=== PATIENT | female | born 1940 | race Caucasian/White ===

== ENCOUNTER 2017-04-17 16:42 | Emergency (ER) | payer MEDICARE ==
[2017-04-17] MEDS ORDERED: oxyCODONE/Acetamin 5/325 MG* TAB PO ONE ×2 (17:31→20:56)
--- NOTE | 2017-04-17 18:22 | RAD ---
INDICATION: Facial trauma. COMPARISON: Comparison is made with a prior CT of the facial bones from November 05, 2002. TECHNIQUE: Contiguous axial sections of the axial images of the facial bones were obtained and reconstructed in the coronal and sagittal planes. FINDINGS: There is soft tissue swelling and a hematoma anterior to the left maxillary region. The hematoma measures approximately 3.2 x 1.2 cm in size. There is a comminuted depressed fracture of the anterior wall of the left maxillary sinus and a comminuted minimally displaced fracture of the posterior wall of the left maxillary sinus. There is also a slightly depressed fracture of the left orbital floor of approximately 2 mm. There is no evidence for herniation of fat or muscle entrapment. There is also a slightly impacted fracture of the lateral wall of the left orbit. There is widening of the left zygomatical frontal suture. The zygomatic arch appears intact. The mandible appears intact. The nasal bones appear intact. The nose is deviated toward the right side. There is moderate to severe deviation of the nasal septum toward the left side. The pterygoid plates appear intact. There is an air-fluid level within the left maxillary sinus. The right maxillary sinus is clear. There is mucosal thickening within the ethmoid air cells and a tiny air-fluid level within the left frontal sinus. The mastoid air cells appear clear. IMPRESSION: 1. COMMINUTED DISPLACED FRACTURES OF THE ANTERIOR AND POSTERIOR BURDEN OF THE LEFT MAXILLARY SINUS. 2. SLIGHTLY DEPRESSED FRACTURE OF THE LEFT ORBITAL FLOOR. 3. SLIGHTLY IMPACTED FRACTURE OF THE LATERAL WALL OF THE LEFT ORBIT. 4. WIDENING OF THE LEFT ZYGOMATICOFRONTAL SUTURE.
--- NOTE | 2017-04-17 18:24 | RAD ---
INDICATION: Head injury. COMPARISON: There are no prior studies available for comparison. TECHNIQUE: Contiguous axial sections of the brain were obtained from the skull base to the vertex without contrast. FINDINGS: The ventricles, cisterns and sulci are enlarged consistent with diffuse atrophy. No significant focal abnormality or mass effect is seen. There is no evidence for hemorrhage. There is an air-fluid level within the left maxillary sinus and fractures of the anterior and posterior durant of the sinus. IMPRESSION: 1. NO EVIDENCE FOR ACUTE INTRACRANIAL ABNORMALITY. 2. MULTIPLE LEFT FACIAL BONE FRACTURES SEE THE CT OF THE FACIAL BONES REPORT FOR FURTHER INFORMATION.
--- NOTE | 2017-04-17 18:25 | RAD ---
INDICATION: Trauma. COMPARISON: There are no prior studies available for comparison. TECHNIQUE: Contiguous axial sections were obtained from the skull base through the T2 vertebra. Images were reconstructed in the sagittal and coronal planes. FINDINGS: The vertebra are in normal alignment. No prevertebral soft tissue swelling or fracture is seen. At the C2-C3 level there is mild posterior uncinate process spurring and hypertrophic change within the left facet joint. No spinal canal narrowing is present. There is mild neural foraminal narrowing on the left side. At the C3-C4 level there is mild posterior uncinate process spurring and hypertrophic changes within the facet joints. No spinal canal narrowing is present. There is mild to moderate bilateral neural foraminal narrowing. At the C4-C5 level there is posterior uncinate process spurring. No significant spinal canal narrowing is present. There is mild to moderate bilateral neural foraminal narrowing. At the C5-C6 level there is mild posterior uncinate process spurring. No significant spinal canal narrowing is present. There is mild bilateral neural foraminal narrowing. At the C6-C7 level there is minimal posterior uncinate process spurring. No significant spinal canal narrowing is seen. Neural foramen appear patent on both sides. IMPRESSION: 1. NO EVIDENCE FOR FRACTURE OR SUBLUXATION. 2. MODERATE CERVICAL SPONDYLOSIS.
[2017-04-17] MEDS ORDERED: Ondansetron ODT TAB* 4 MG PO ONE ×2 (19:18→20:56)
[2017-04-17] MEDS ORDERED: Amoxicillin/Clavulanate TAB* 875 MG PO ONE ×2 (19:20→20:56)
[2017-04-17 22:55] VITALS: BP 145/73
--- NOTE | 2017-04-18 21:02 | ED ---
Grabiel Carter Gabriel, scribed for Russ Ureña MD on 04/17/17 at 1752 . Adult Trauma - HPI Summary HPI Summary: This patient is a 77 year old F BIBA to [facility] s/p mechanical fall that occurred [employer]. Patient states she slipped on ice causing her to fall down three stairs. The patient rates the pain 5/10 in severity. Patient reports the feeling of jaw misalignment, pain on the left side of her face, abrasion on left knee, and slight nausea. Patient denies vomiting, visual changes, and LOC. Hx one prior fall when she slipped and broke her orbital socket. - History of Current Complaint Chief Complaint: EDGeneral Stated Complaint: FALL Time Seen by Provider: 04/17/17 16:51 Hx Obtained From: Patient Mechanism of Injury: Fall Loss of Consciousness: no loss of consciousness Onset/Duration: Still Present Onset of Pain: Immediate Onset Severity: Moderate Current Severity: Moderate Pain Intensity: 5 Pain Scale Used: 0-10 Numeric Location: Head Associated Signs & Symptoms: Positive: Negative - LOC, vomiting, visual changes , Other: - the feeling of jaw misalignment, pain on the left side of her face, abrasion on left knee, and slight nausea - Allergy/Home Medications Allergies/Adverse Reactions: Allergies Allergy/AdvReac Type Severity Reaction Status Date / Time No Known Allergies Allergy Verified 04/17/17 16:46 PMH/Surg Hx/FS Hx/Imm Hx Endocrine/Hematology History: Reports: Hx Thyroid Disease - hypothyroid History: Denies: Hx Benign Prostatic Hyperplasia Musculoskeletal History: Denies: Hx Rheumatoid Arthritis, Hx Osteoporosis Infectious Disease History: No Infectious Disease History: Denies: Traveled Outside the [place] in Last 30 Days - Family History Known Family History: Negative: Renal Disease, Respiratory Disease, Seizure Disorder - Social History Alcohol Use: Rare Substance Use Type: Reports: None Smoking Status (MU): Never Smoked Tobacco Review of Systems All Other Systems Reviewed And Are Negative: Yes Physical Exam - Summary Physical Exam Summary: Appearance: The patient is well-nourished in no acute distress and in no acute pain. Skin: The skin is warm and dry and skin color reflects adequate perfusion. HEENT: The pupils are equal and reactive. The conjunctivae are clear and without drainage. Nares are patent and without drainage. Mouth reveals moist mucous membranes and the throat is without erythema and exudate. The external ears are intact. The ear canals are patent and without drainage. The tympanic membranes are intact. Swelling over the left zygomatic arch jaw moves with no click or pop Neck: the neck is supple with full range of motion and non-tender. There are no carotid bruits. There is no neck vein distension. Respiratory: Chest is non-tender. Lungs are clear to auscultation and breath sounds are symmetrical and equal. Cardiovascular: Heart is regular rate and rhythm. There is no murmur or rub auscultated. There is no peripheral edema and pulses are symmetrical and equal. Abdomen: The abdomen is soft and non-tender. There are normal bowel sounds heard in all four quadrants and there is no organomegaly palpated. Musculoskeletal: There is no back tenderness noted. Extremities are non-tender with full range of motion. There is good capillary refill. There is no peripheral edema or calf tenderness elicited. Neurological: Patient is alert and oriented to person, place and time. The patient has symmetrical motor strength in all four extremities. Cranial nerves are grossly intact. Deep tendon reflexes are symmetrical and equal in all four extremities. Psychiatric: The patient has an appropriate affect and does not exhibit any anxiety or depression. Triage Information Reviewed: Yes Vital Signs On Initial Exam: Initial Vitals Temp Pulse Resp BP Pulse Ox 99.0 F 65 16 170/100 100 04/17/17 16:47 04/17/17 16:47 04/17/17 16:47 04/17/17 16:47 04/17/17 16:47 Vital Signs Reviewed: Yes Diagnostics - Vital Signs Vital Signs Temp Pulse Resp BP Pulse Ox 04/17/17 17:36 20 04/17/17 16:47 99.0 F 65 16 170/100 100 - Laboratory Lab Statement: Any lab studies that have been ordered have been reviewed, and results considered in the medical decision making process. - CT CT Cspine CT Interpretation Completed By: Radiologist - 1. NO EVIDENCE FOR FRACTURE OR SUBLUXATION. 2. MODERATE CERVICAL SPONDYLOSIS. ED physician has reviewed this radiology report. CT Brain CT Interpretation Completed By: Radiologist - 1. NO EVIDENCE FOR ACUTE INTRACRANIAL ABNORMALITY. 2. MULTIPLE LEFT FACIAL BONE FRACTURES SEE THE CT OF THE FACIAL BONES REPORT FOR FURTHER INFORMATION. ED physician has reviewed this radiology report. CT maxillofacial CT Interpretation Completed By: Radiologist - 1. COMMINUTED DISPLACED FRACTURES OF THE ANTERIOR AND POSTERIOR BURDEN OF THE LEFT MAXILLARY SINUS. 2. SLIGHTLY DEPRESSED FRACTURE OF THE LEFT ORBITAL FLOOR. 3. SLIGHTLY IMPACTED FRACTURE OF THE LATERAL WALL OF THE LEFT ORBIT. 4. WIDENING OF THE LEFT ZYGOMATICOFRONTAL SUTURE. ED physician has reviewed this radiology report. Adult Trauma Course/Dx - Course Course Of Treatment: Ms. Wright suffered a mechanical fall on the ice and hit the left side of her face on the pavement. She did not lose consciousness but was mildly nauseated and C/O a diffuse LING. She had left upper cheek swelling and bruising. Her jaw moved well with no click or pop. CT revealed multiple zygomatic and orbital fractures. She had no orbit entrapment. I treated her symptomatically and encouraged close F/U with Dr. Zuñiga who is on for facial trauma. He will be able to point her in the right direction if she needs any surgery. - Diagnoses Provider Diagnoses: Facial fracture, Head injury Discharge - Discharge Plan Condition: Stable Disposition: HOME Prescriptions: Amoxicillin/Clavulanate TAB* [Augmentin TAB 875*] 875 mg PO BID #20 tab Ondansetron ODT TAB* [Zofran Odt TAB*] 4 mg PO Q6H PRN #20 tab.odt PRN Reason: Nausea/Vomiting oxyCODONE/Acetamin 5/325 MG* [Percocet 5/325 TAB*] 1 tab PO Q6H PRN #20 tab MDD 4 PRN Reason: Pain Patient Education Materials: Oxycodone/Acetaminophen (By mouth), Amoxicillin/ Clavulanate Potassium (By mouth), Ondansetron (By mouth), Facial Fracture (ED), Head Injury (ED) Referrals: Baldo Davenport MD [Medical Doctor] - 2 Days Additional Instructions: RETURN TO EMERGENCY DEPARTMENT FOR ANY NEW OR WORSENING SYMPTOMS The documentation as recorded by the Grabiel weiss Gabriel accurately reflects the service I personally performed and the decisions made by , Russ Ureña MD.
== END 2017-04-17 22:51 | disposition home or self-care (01) ==
LOC: ED 16:42
DX: S02.92XA Unspecified fracture of facial bones, initial encounter for closed fracture (principal); S80.212A Abrasion, left knee, initial encounter; W00.1XXA Fall from stairs and steps due to ice and snow, initial encounter; Y92.89 Other specified places as the place of occurrence of the external cause; R11.0 Nausea
CPT/HCPCS: 70450; 70486; 72125; 99284; A9270-GY